=== PATIENT | female | born 1985 | race Caucasian/White ===

== ENCOUNTER 2018-11-25 04:03 | Emergency (ER) | payer MEDICAID ==
[~2018-11-25] VITALS: Ht 157.5 cm; Wt 45.4 kg
--- NOTE | 2018-11-25 04:55 | NUR ---
Dr. Perry at bedside for MSE.
--- NOTE | 2018-11-25 05:07 | NUR ---
Patient discharged to home in stable conditon. Written and verbal after care instructions given. Patient verbalizes understanding of instructions. Pt ambulated out of ER with steady gait, no acute signs of distress, VSS, all belongings taken.
[2018-11-25 05:10] VITALS: BP 108/80
== END 2018-11-25 06:00 | disposition home or self-care (01) ==
LOC: ER 05:32
DX: L03.211 Cellulitis of face (principal); I88.9 Nonspecific lymphadenitis, unspecified; J45.909 Unspecified asthma, uncomplicated; F15.10 Other stimulant abuse, uncomplicated; Z88.8 Allergy status to other drugs, medicaments and biological substances
CPT/HCPCS: A4663

== ENCOUNTER 2018-12-20 01:42 | Emergency (ER) | payer MEDICAID ==
--- NOTE | 2018-12-20 02:04 | NUR ---
PATIENT LEFT WITHOUT BEING TRIAGED OR SEEN BY ERMD
== END 2018-12-20 02:05 | disposition left against medical advice (07) ==
LOC: ER 01:45
DX: Z53.21 Procedure and treatment not carried out due to patient leaving prior to being seen by health care provider (principal)